=== PATIENT | female | born 1980 | race Caucasian/White ===

== ENCOUNTER 2016-05-17 12:53 | Emergency (ER) | payer OTHER ==
[2016-05-17 13:43] LABS: BASOPHIL 0.4 % (0-2); EOSINOPHIL 1.6 % (0-5); HCT 37.4 % (37.0-47.0); HGB 11.6 g/dl (12.5-16.0); LYMPHOCYTE 19.3 % (15-48); MCH 23.5 pg (25.0-31.0); MCV 75.9 fL (78.0-100.0); MONOCYTE 5.2 % (0-12); MPV 9.3 fL (6.0-9.5); NEUTROPHIL 73.5 % (41-80); PLT 404 K/uL (150-400); RBC 4.93 M/uL (4.20-5.40); RDW 17.4 % (11.5-14.0); WBC 9.4 K/uL (4.0-10.5)
[2016-05-17 14:06] LABS: ALBUMIN 4.3 g/dL (3.5-5.0); BILIRUBIN - TOTAL 0.2 mg/dL (0.1-1.0); CREATININE 0.8 mg/dL (0.5-1.0); GLOBULIN (CALCULATION) 2.8 g/dL (2.2-4.2); POTASSIUM 3.4 mmol/L (3.5-5.1); TOTAL PROTEIN 7.1 g/dL (6.4-8.3)
[2016-05-17 14:09] LABS: BILIRUBIN NEGATIVE (NEGATIVE); BLOOD NEGATIVE Ery/uL (NEGATIVE); CLARITY CLEAR (CLEAR); COLOR YELLOW (YELLOW); GLUCOSE (U) NORMAL (NORMAL); KETONE (U) NEGATIVE (NEGATIVE); LEUKOCYTES NEGATIVE Leu/uL (NEGATIVE); NITRITE NEGATIVE (NEGATIVE); PROTEIN NEGATIVE (NEGATIVE); UROBILINOGEN 0.2 mg/dL (0.2-1.0)
== END 2016-05-17 15:22 | disposition home or self-care (01) ==
LOC: FER 12:53
PROVIDERS: Emergency Medicine
DX: R10.11 Right upper quadrant pain (principal); R19.7 Diarrhea, unspecified; R11.0 Nausea; F17.210 Nicotine dependence, cigarettes, uncomplicated; Z88.2 Allergy status to sulfonamides; Z88.5 Allergy status to narcotic agent; Z87.19 Personal history of other diseases of the digestive system; Z90.49 Acquired absence of other specified parts of digestive tract
CPT/HCPCS: 36415; 80053; 81003; 83690; 85025; J2405